=== PATIENT | female | born 1995 | race Two or more races ===

== ENCOUNTER → 2021-02-13 09:16 | Outpatient (BNVA) | payer OTHER, SELFPAY | PROVIDERS: PCP Internal Medicine; Visit Provider Advanced Practice Midwife | DX: N92.6 Irregular menstruation, unspecified (principal) | CPT/HCPCS: 81025; 99202 ==

== ENCOUNTER 2021-02-28 15:50 | Outpatient (REF) | payer OTHER, SELFPAY ==
--- NOTE | ~2021-02-28 | US_ITS ---
EXAMINATION: US OBSTETRICAL ULTRASOUND CLINICAL INFORMATION: Irregular menses. Check size and dates. COMPARISON: None. LMP: 01/05/2021. Gestational age by maternal dates is 7 weeks 5 days. Estimated date of delivery by maternal dates is 10/12/2021. TECHNIQUE: Transabdominal first trimester OB ultrasound. FINDINGS: There is a single intrauterine gestational sac with visible yolk sac, embryo/fetus, and cardiac activity. There is a second 0.4 x 0.3 x 0.3 cm simple cyst questionable for the amnion. There is no significant subchorionic hemorrhage or hematoma. HR: 140 beats per minute. CRL (crown-rump length): 1.13 cm (7 weeks 2 days +/- 4 days). JOSE CARLOS (estimated date of delivery): 10/15/2021 +/- 4 days. MATERNAL ADNEXA: The right maternal ovary measures 2.1 x 1.8 x 1.3 cm. The left maternal ovary is not seen. There is no significant maternal adnexal mass. No maternal pelvic ascites. US/US OB <= 14 weeks fetus IMPRESSION: 1. Single intrauterine gestation with ultrasound gestational age of 7 weeks 2 days +/- 4 days. 2. Estimated date of delivery is 10/15/2021 +/- 4 days. 3. No maternal adnexal mass or pelvic ascites.
== END 2021-02-28 15:51 | disposition home or self-care (01) ==
LOC: HO.US 15:50
PROVIDERS: PCP Internal Medicine; Visit Provider Advanced Practice Midwife
DX: N92.6 Irregular menstruation, unspecified (principal)
CPT/HCPCS: 76801

== ENCOUNTER → 2021-03-07 14:50 | Outpatient (BNVA) | payer OTHER, SELFPAY | PROVIDERS: PCP Internal Medicine; Visit Provider Advanced Practice Midwife ==

== ENCOUNTER → 2021-03-14 14:13 | Outpatient (BNVA) | payer OTHER, SELFPAY | PROVIDERS: Visit Provider Advanced Practice Midwife | DX: O99.321 Drug use complicating pregnancy, first trimester (principal); F12.90 Cannabis use, unspecified, uncomplicated; O21.9 Vomiting of pregnancy, unspecified; Z3A.09 9 weeks gestation of pregnancy | CPT/HCPCS: 99212 ==

== ENCOUNTER 2021-03-23 09:41 | Outpatient (REF) | payer OTHER, SELFPAY ==
[2021-03-23 11:03] LABS: Hematocrit 36.5 % (37-47); Hemoglobin 12.4 g/dl (12.0-16.0); Mean Corpuscular Hemoglobin 29.2 pg (27.0-33.0); Mean Corpuscular Volume 86.1 fL (80-98); Mean Platelet Volume 10.3 fL (9.4-12.3); Platelet Count 201 X10*3/uL (160-400); Red Blood Count 4.24 X10*6/uL (4.20-5.50); Red Cell Distribution Width 12.4 % (11.0-16.0); White Blood Count 8.6 X10*3/uL (4.8-10.8)
[2021-03-23 11:41] LABS: Amphetamine Screen Urine Not Detected (Not Detect); Barbiturates, Urine Not Detected (Not Detect); Benzodiazepines Screen Urine Not Detected (Not Detect); Cannabinoid Screen Urine POSITIVE (Not Detect); Cocaine Screen Urine Not Detected (Not Detect); Fentanyl, urine Not Detected (Not Detect); Opiate Screen Urine Not Detected (Not Detect); Phencyclidine Screen Urine Not Detected (Not Detect)
[2021-03-25 03:34] LABS: Syphilis Screen Nonreactive (Nonreactive)
[2021-03-25 04:03] LABS: HBsAGNum1 0.79 S/CO (0.00-0.99); HIV AB/AG Nonreactive (Nonreactive); HIV Num 1 0.06 S/CO (0.00-0.99); Hepatitis B Surface Antigen Negative (Negative); ~HepC Num1 0.04 S/CO (0.00-0.79); ~Hepatitis C Antibody Nonreactive (Nonreactive)
[2021-03-25 17:32] LABS: Rubella IgG Antibody 3.53 Index
== END 2021-03-23 09:42 | disposition home or self-care (01) ==
LOC: HO.LAB 09:41
PROVIDERS: PCP Internal Medicine; Visit Provider Advanced Practice Midwife
DX: Z32.01 Encounter for pregnancy test, result positive (principal)
CPT/HCPCS: 80307; 85027; 86762; 86780; 86787; 86803; 86850; 86900; 86901; 87086; 87340; 87389

== ENCOUNTER 2021-03-29 12:58 | Outpatient (REF) | payer OTHER, SELFPAY ==
--- NOTE | ~2021-03-29 | US_ITS ---
EXAMINATION: OBSTETRICAL ULTRASOUND, FIRST TRIMESTER HISTORY: A 25-year-old at 11.6 weeks of gestation NT screening COMPARISON: 02/28/2021 TECHNIQUE: Real time transabdominal imaging with color and M-mode Doppler. FINDINGS: A single, live IUP CRL of 52.4 mm c/w 12.0wks is noted. Heart Rate: 150 beats per minute. Normal yolk sac seen. NT was 1.14.mm. NB Present The embryo appears sonographically wnl for this GA. Both maternal ovaries are seen and appear normal. GESTATIONAL AGE: 1. Established GA: 11.6 wks 2. GA from [facility]: 12.0 wks ESTIMATED DATE OF DELIVERY: 1. Established JOSE CARLOS: 10/12/2021 2. JOSE CARLOS from [facility]: 10/11/2021 US/US OB 1T nuc measure IMPRESSION: 1. A single live IUP 2. Size equals dates 3. NT of 1.14 mm MFM Consultation: I reviewed the ultrasound findings along with significance of NT measurement. The NT of less than 3mm is generally reassuring. However, the sensitivity for T21 detection is only 60%. I reviewed the availability of serum aneuploidy screening which includes cell-free DNA and placental protein based tests. I discussed the sensitivity, false-positive rate, and other limitations associated with each test. I also reviewed the availability of invasive diagnostic tests that are associated small but definite risk of miscarriage. We also reviewed the differences between screening tests and diagnostic tests. After our discussion, she opted for the First trimester screening that is based on cell-free DNA or non-invasive testing (NIPT). The result will be faxed to your office in approximately 7 days. A follow up at 18 weeks for survey has been scheduled. Thank you very much for this referral. Total time 30 minutes. The time spent was devoted to counseling the patient about the disease and diagnosis, coordinating care including reviewing her records, pertinent lab data and studies, as well as discussing diagnostic evaluation and workup, plan therapeutic interventions and future disposition of care. This includes any additional research needed to obtain further information in formulating the plan of care of this patient. This note was generated with a voice recognition program. Please excuse any errors which may have been overlooked during my review of this note. Sometimes these errors may affect the content or meaning of a given sentence.
== END 2021-03-29 12:59 | disposition home or self-care (01) ==
LOC: HO.US 12:58
PROVIDERS: Visit Provider Advanced Practice Midwife
DX: Z32.01 Encounter for pregnancy test, result positive (principal); Z36.82 Encounter for antenatal screening for nuchal translucency
CPT/HCPCS: 76813

== ENCOUNTER 2021-04-30 08:50 | Outpatient (REF) | payer OTHER, SELFPAY ==
[2021-05-01 13:18] LABS: BV Int Neg Control Negative (Negative); BV Int Pos Control Positive (Positive)
[2021-05-01 13:57] LABS: CT PCR NOT DETECTED (Not Detect.); NG PCR NOT DETECTED (Not Detect.)
== END 2021-04-30 08:51 | disposition home or self-care (01) ==
LOC: HO.LAB 08:50
PROVIDERS: PCP Internal Medicine; Visit Provider Advanced Practice Midwife
DX: Z34.92 Encounter for supervision of normal pregnancy, unspecified, second trimester (principal); Z36.3 Encounter for antenatal screening for malformations; Z3A.16 16 weeks gestation of pregnancy
CPT/HCPCS: 87480; 87491; 87510; 87591; 87660; 99212

== ENCOUNTER 2021-05-17 10:16 | Outpatient (REF) | payer OTHER, SELFPAY ==
--- NOTE | ~2021-05-17 | US_ITS ---
EXAMINATION: US OBSTETRICAL CLINICAL INFORMATION: 26-year-old at 18.6 weeks of gestation Suspected anomaly COMPARISON: 03/29/2021 TECHNIQUE: Real-time transabdominal ultrasound was performed using C1-5 megahertz transducer. FINDINGS: A single, active, fetus is seen in vertex presentation. The placenta is anterior without previa, and the amniotic fluid volume is wnl. MEASUREMENTS: 1. Biparietal Diameter: 4.2 cm; 18.5 wks 2. Occipital Frontal Diameter: 5.3 cm 3. Head Circumference: 15.4 cm; 18.3 wks 4. Abdominal Circumference: 12.6 cm; 18.2 wks 5. Femur Length: 2.9 cm; 19.0 wks 6. Humerus Length: 2.7 cm; 18.6 wks 7. Tibia Length: 2.5 cm; 18.6 wks 8. Ulna Length: 2.6 cm; 19.2 wks 9. Lateral ventricle: 0.51 cm 10. Cerebellum: 1.9 cm; 19.3 wks 11. Cisterna Magna: 0.4 cm 12. Nuchal Fold: 2.6 mm 13. Heart Rate: 140 beats per minute Rt ovary: normal Lt ovary: normal Cervical length 3.5 cm on T/A. GESTATIONAL AGE: 1. Established GA: 18.6 wks 2. GA from [facility]: 18.5 wks ESTIMATED DATE OF DELIVERY: 1. Established JOSE CARLOS: 10/12/2021 2. JOSE CARLOS from [facility]: 10/13/2021 ANATOMY: The visualized anatomy includes but not limited to: 1. Cranium: Normal 2. Intracranial anatomy: cavum septum pellucidi, lateral ventricles, choroid plexus, cerebellum, posterior fossa, third and fourth ventricles. 3. face: orbits, lip/palate, profile, nasal bone 4. Heart: four-chamber view of the heart, ventricular septum, foramen ovale, pulmonary vein, left and right outflow tracts, three-vessel view, 3 vessel trachea view, aortic and ductal arches, situs.. 5. Diaphragm: Normal 6. Abdominal wall: Normal 7. Cord Insertion: Normal 8. Spine: Cervical, thoracic, lumbar, sacral. 9. Stomach: Normal size and shape 10. Right Kidney: Normal 11. Left Kidney: Normal 12. 3 vessel cord: Normal 13. Upper extremity: Open hands, fifth digit. 14. Lower extremity: Tibia, fibula, bilateral feet. 15. Bladder: Normal 16. Genitalia: Female, patient aware US/US OB /maternal detail IMPRESSION: 1. Single, living, intrauterine with appropriate biometry. 2. Normal survey DISCUSSION: I reviewed today's ultrasound findings. We discussed the limitations of ultrasound in diagnosing aneuploidy and other congenital abnormalities. I reviewed the differences between screening test and diagnostic test. Amniocentesis was discussed and declined. She was informed that the baseline incidence of congenital abnormalities is approximately 3-5%. Not all these conditions are diagnosable in utero. RECOMMENDATIONS: 1. Follow-up when necessary Thank you for allowing me to participate in her care. Total time 20 minutes. The time spent was devoted to counseling the patient about the disease and diagnosis, coordinating care including reviewing her records, pertinent lab data and studies, as well as discussing diagnostic evaluation and workup, plan therapeutic interventions and future disposition of care. This includes any additional research needed to obtain further information in formulating the plan of care of this patient. This note was generated with a voice recognition program. Please excuse any errors which may have been overlooked during my review of this note. Sometimes these errors may affect the content or meaning of a given sentence.
== END 2021-05-17 10:17 | disposition home or self-care (01) ==
LOC: HO.US 10:16
PROVIDERS: Visit Provider Advanced Practice Midwife
DX: Z34.92 Encounter for supervision of normal pregnancy, unspecified, second trimester (principal); Z36.3 Encounter for antenatal screening for malformations
CPT/HCPCS: 76811

== ENCOUNTER → 2021-07-01 08:32 | Outpatient (BNVA) | payer OTHER, SELFPAY | PROVIDERS: Visit Provider Obstetrics & Gynecology | DX: O99.322 Drug use complicating pregnancy, second trimester (principal); F12.90 Cannabis use, unspecified, uncomplicated; Z3A.25 25 weeks gestation of pregnancy | CPT/HCPCS: 99212 ==

== ENCOUNTER → 2021-07-18 08:21 | Outpatient (BNVA) | payer OTHER, SELFPAY | PROVIDERS: Visit Provider Obstetrics & Gynecology | DX: O99.322 Drug use complicating pregnancy, second trimester (principal); F12.90 Cannabis use, unspecified, uncomplicated; Z23 Encounter for immunization; Z3A.27 27 weeks gestation of pregnancy | CPT/HCPCS: 90471; 99212 ==

== ENCOUNTER 2021-08-05 09:19 | Outpatient (REF) | payer OTHER, SELFPAY ==
[2021-08-05 10:51] LABS: Hematocrit 32.5 % (37.0-47.0); Hemoglobin 10.9 g/dl (12.0-16.0); Mean Corpuscular HGB Conc 33.5 g/dl (31.0-35.0); Mean Corpuscular Hemoglobin 30.8 pg (27.0-33.0); Mean Corpuscular Volume 91.8 fL (80.0-98.0); Mean Platelet Volume 10.4 fL (9.4-12.3); Platelet Count 200 X10*3/uL (160-400); Red Blood Count 3.54 X10*6/uL (4.20-5.50); Red Cell Distribution Width 12.1 % (11.0-16.0); White Blood Count 11.3 X10*3/uL (4.8-10.8)
[2021-08-05 11:11] LABS: Glucose 1 Hour PP 50gm Dose 96 mg/dL (60-140)
[2021-08-05 12:00] LABS: Syphilis Screen Nonreactive (Nonreactive)
== END 2021-08-05 09:20 | disposition home or self-care (01) ==
LOC: HO.LAB 09:19
PROVIDERS: PCP Internal Medicine; Visit Provider Obstetrics & Gynecology
DX: Z34.92 Encounter for supervision of normal pregnancy, unspecified, second trimester (principal)
CPT/HCPCS: 82943; 85027; 86780

== ENCOUNTER → 2021-08-21 08:38 | Outpatient (BNVA) | payer OTHER, SELFPAY | PROVIDERS: PCP Internal Medicine; Visit Provider Advanced Practice Midwife | DX: O99.323 Drug use complicating pregnancy, third trimester (principal); F12.90 Cannabis use, unspecified, uncomplicated; O99.013 Anemia complicating pregnancy, third trimester; D64.9 Anemia, unspecified; Z3A.32 32 weeks gestation of pregnancy | CPT/HCPCS: 81003; 99212 ==

== ENCOUNTER → 2021-09-04 09:48 | Outpatient (BNVA) | payer OTHER, SELFPAY | PROVIDERS: PCP Internal Medicine; Visit Provider Advanced Practice Midwife | DX: O99.343 Other mental disorders complicating pregnancy, third trimester (principal); F43.10 Post-traumatic stress disorder, unspecified; Z86.59 Personal history of other mental and behavioral disorders; Z68.34 Body mass index [BMI] 34.0-34.9, adult | CPT/HCPCS: 99212 ==

== ENCOUNTER → 2021-09-11 14:04 | Outpatient (BNVA) | payer OTHER, SELFPAY | PROVIDERS: Visit Provider Advanced Practice Midwife | DX: O26.843 Uterine size-date discrepancy, third trimester (principal); Z86.59 Personal history of other mental and behavioral disorders; Z3A.35 35 weeks gestation of pregnancy | CPT/HCPCS: 99212 ==

== ENCOUNTER 2021-09-13 11:30 | Outpatient (REF) | payer OTHER, SELFPAY ==
--- NOTE | ~2021-09-13 | US_ITS ---
EXAMINATION: OBSTETRICAL ULTRASOUND, Follow up HISTORY: 26-year-old at 35.6 weeks of gestation Size date discrepancy COMPARISON: TECHNIQUE: Real time transabdominal imaging with color and M-mode Doppler. PRESENTATION: Vertex PLACENTA LOCATION: Anterior without previa AMNIOTIC FLUID: SARAY 12.8 MEASUREMENTS: 1. Biparietal Diameter: 8.8 cm; 35.3 wks 2. Head Circumference: 31.9 cm; 36.0 wks 3. Abdominal Circumference: 31.3 cm; 35.2 wks 4. Femur Length: 6.4 cm; 33.0 wks 5. Heart Rate: 1:30 beats per minute WEIGHT: EFW: 2490 grams (5 lbs 8 oz) -- 20 %. BIOPHYSICAL PROFILE: Motion: 2 Tone: 2 Breathin Amniotic Fluid: 2 Total score: 8/8 GESTATIONAL AGE: 1. Established GA: 35.6 wks 2. GA from [facility]: 35.0 wks ESTIMATED DATE OF DELIVERY: 1. Established JOSE CARLOS: 10/12/2021 2. JOSE CARLOS from [facility]: 10/18/2021 US/US OB follow up IMPRESSION: This is a pérez gestation. Thank you very much for this referral. Total time 20 minutes. The time spent was devoted to counseling the patient about the disease and diagnosis, coordinating care including reviewing her records, pertinent lab data and studies, as well as discussing diagnostic evaluation and workup, plan therapeutic interventions and future disposition of care. This includes any additional research needed to obtain further information in formulating the plan of care of this patient. This note was generated with a voice recognition program. Please excuse any errors which may have been overlooked during my review of this note. Sometimes these errors may affect the content or meaning of a given sentence.
== END 2021-09-13 11:31 | disposition home or self-care (01) ==
LOC: HO.US 11:30
PROVIDERS: PCP Internal Medicine; Visit Provider Advanced Practice Midwife
DX: O26.893 Other specified pregnancy related conditions, third trimester (principal); Z3A.35 35 weeks gestation of pregnancy; Z86.59 Personal history of other mental and behavioral disorders
CPT/HCPCS: 76816

== ENCOUNTER 2021-09-18 14:54 | Outpatient (REF) | payer OTHER, SELFPAY ==
[2021-09-19 05:24] LABS: CT PCR NOT DETECTED (Not Detect.); NG PCR NOT DETECTED (Not Detect.)
== END 2021-09-18 14:55 | disposition home or self-care (01) ==
LOC: HO.LAB 14:54
PROVIDERS: PCP Internal Medicine; Visit Provider Advanced Practice Midwife
DX: O99.013 Anemia complicating pregnancy, third trimester (principal); Z3A.36 36 weeks gestation of pregnancy
CPT/HCPCS: 87081; 87147; 87491; 87591; 99212

== ENCOUNTER → 2021-09-25 15:14 | Outpatient (BNVA) | payer OTHER, SELFPAY | PROVIDERS: Visit Provider Advanced Practice Midwife | DX: Z13.89 Encounter for screening for other disorder (principal) ==

== ENCOUNTER → 2021-09-26 08:19 | Outpatient (BNVA) | payer OTHER, SELFPAY | PROVIDERS: Visit Provider Obstetrics & Gynecology | DX: Z34.03 Encounter for supervision of normal first pregnancy, third trimester (principal); Z3A.37 37 weeks gestation of pregnancy | CPT/HCPCS: 99212 ==

== ENCOUNTER → 2021-10-03 11:32 | Outpatient (BNVA) | payer OTHER, SELFPAY | PROVIDERS: Visit Provider Obstetrics & Gynecology | DX: Z34.93 Encounter for supervision of normal pregnancy, unspecified, third trimester (principal); Z3A.38 38 weeks gestation of pregnancy | CPT/HCPCS: 99212 ==

== ENCOUNTER → 2021-10-09 14:55 | Outpatient (BNVA) | payer OTHER, SELFPAY | PROVIDERS: Visit Provider Advanced Practice Midwife | DX: Z34.03 Encounter for supervision of normal first pregnancy, third trimester (principal); Z3A.39 39 weeks gestation of pregnancy | CPT/HCPCS: 99212 ==

== ENCOUNTER 2023-02-06 14:22 | Outpatient (AMB) | payer MEDICAID, SELFPAY ==
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
[2023-02-06 14:29] VITALS: BP 110/72; BMI 24.9
== END 2023-02-09 07:21 | disposition home or self-care (01) ==
LOC: HO.HWS 14:22
PROVIDERS: Visit Provider Advanced Practice Midwife
DX: Z86.59 Personal history of other mental and behavioral disorders (principal); F32.A Depression, unspecified; F53.0 Postpartum depression; Z20.2 Contact with and (suspected) exposure to infections with a predominantly sexual mode of transmission; Z11.3 Encounter for screening for infections with a predominantly sexual mode of transmission; Z30.09 Encounter for other general counseling and advice on contraception; R45.7 State of emotional shock and stress, unspecified; Z86.19 Personal history of other infectious and parasitic diseases
CPT/HCPCS: 99214

== ENCOUNTER 2023-02-06 14:22 | Outpatient (REF) | payer SELFPAY ==
[2023-02-07 12:50] LABS: BV Int Neg Control Negative (Negative); BV Int Pos Control Positive (Positive)
== END 2023-02-06 14:23 | disposition home or self-care (01) ==
LOC: HO.LNP 14:22
PROVIDERS: Visit Provider Advanced Practice Midwife
DX: Z20.2 Contact with and (suspected) exposure to infections with a predominantly sexual mode of transmission (principal); Z86.19 Personal history of other infectious and parasitic diseases
CPT/HCPCS: 87480; 87510; 87660; 99212

== ENCOUNTER 2023-02-06 15:35 | Outpatient (REF) | payer MEDICAID, SELFPAY ==
[2023-02-07 04:06] LABS: Syphilis Screen Nonreactive (Nonreactive)
[2023-02-07 04:10] LABS: HBsAGNum1 0.31 S/CO (0.00-0.99); HIV AB/AG Nonreactive (Nonreactive); HIV Num 1 0.05 S/CO (0.00-0.99); Hepatitis B Surface Antigen Negative (Negative); ~HepC Num1 0.05 S/CO (0.00-0.79); ~Hepatitis C Antibody Nonreactive (Nonreactive)
[2023-02-07 04:26] LABS: CT PCR NOT DETECTED (Not Detect.); NG PCR NOT DETECTED (Not Detect.)
== END 2023-02-06 15:36 | disposition home or self-care (01) ==
LOC: HO.LAB 15:35
PROVIDERS: Visit Provider Advanced Practice Midwife
DX: Z11.3 Encounter for screening for infections with a predominantly sexual mode of transmission (principal); Z11.4 Encounter for screening for human immunodeficiency virus [HIV]; Z20.2 Contact with and (suspected) exposure to infections with a predominantly sexual mode of transmission
CPT/HCPCS: 0353U; 86780; 86803; 87340; 87389

== ENCOUNTER 2023-07-02 13:01 | Outpatient (AMB) | payer MEDICAID, SELFPAY ==
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
[2023-07-02 13:33] VITALS: BP 94/58; BMI 26.3
== END 2023-07-02 14:17 | disposition home or self-care (01) ==
LOC: HO.HWS 13:01
PROVIDERS: PCP Internal Medicine; Visit Provider Advanced Practice Midwife
DX: Z32.02 Encounter for pregnancy test, result negative (principal); Z20.2 Contact with and (suspected) exposure to infections with a predominantly sexual mode of transmission
CPT/HCPCS: 99213

== ENCOUNTER 2023-07-02 13:01 | Outpatient (REF) | payer MEDICAID, SELFPAY ==
[2023-07-03 15:23] LABS: BV Int Neg Control Negative (Negative); BV Int Pos Control Positive (Positive)
== END 2023-07-02 13:02 | disposition home or self-care (01) ==
LOC: HO.LNP 13:01
PROVIDERS: PCP Internal Medicine; Visit Provider Advanced Practice Midwife
DX: N89.8 Other specified noninflammatory disorders of vagina (principal); Z20.2 Contact with and (suspected) exposure to infections with a predominantly sexual mode of transmission; Z32.02 Encounter for pregnancy test, result negative
CPT/HCPCS: 0353U; 81025; 86704; 86780; 86803; 87389; 87480; 87510; 87660; 99212

== ENCOUNTER 2023-07-02 14:09 | Outpatient (REF) | payer MEDICAID, SELFPAY ==
[2023-07-02 17:06] LABS: CT PCR NOT DETECTED (Not Detect.); NG PCR NOT DETECTED (Not Detect.)
[2023-07-03 08:16] LABS: HBc Num1 0.04 S/CO (0.00-0.79); HIV AB/AG Nonreactive (Nonreactive); HIV Num 1 0.04 S/CO (0.00-0.99); Hepatitis B Core Antibody Nonreactive (Nonreactive); ~HepC Num1 0.06 S/CO (0.00-0.79); ~Hepatitis C Antibody Nonreactive (Nonreactive)
[2023-07-03 08:22] LABS: Syphilis Screen Nonreactive (Nonreactive)
== END 2023-07-02 14:10 | disposition home or self-care (01) ==
LOC: HO.LAB 14:09
PROVIDERS: PCP Internal Medicine; Visit Provider Advanced Practice Midwife
DX: N89.8 Other specified noninflammatory disorders of vagina (principal); Z20.2 Contact with and (suspected) exposure to infections with a predominantly sexual mode of transmission
CPT/HCPCS: 0353U; 86704; 86780; 86803; 87389

== ENCOUNTER 2023-12-08 09:21 | Outpatient (AMB) | payer MEDICAID, SELFPAY ==
[2023-12-08 09:22] VITALS: BP 96/62; BMI 26.3
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
== END 2023-12-08 09:53 | disposition home or self-care (01) ==
LOC: HO.HWSM 09:21
PROVIDERS: PCP Internal Medicine; Visit Provider Advanced Practice Midwife
DX: Z11.3 Encounter for screening for infections with a predominantly sexual mode of transmission (principal); N89.8 Other specified noninflammatory disorders of vagina; Z12.4 Encounter for screening for malignant neoplasm of cervix
CPT/HCPCS: 99213

== ENCOUNTER 2023-12-08 09:21 | Outpatient (REF) | payer MEDICAID, SELFPAY | END 2023-12-08 09:22 | disposition home or self-care (01) | LOC: HO.LAB 09:21 | PROVIDERS: PCP Internal Medicine; Visit Provider Advanced Practice Midwife | DX: Z12.4 Encounter for screening for malignant neoplasm of cervix (principal); N89.8 Other specified noninflammatory disorders of vagina; Z11.3 Encounter for screening for infections with a predominantly sexual mode of transmission | CPT/HCPCS: 88142; 99212 ==

== ENCOUNTER 2023-12-08 10:11 | Outpatient (REF) | payer MEDICAID, SELFPAY ==
[2023-12-08 14:03] LABS: CT PCR NOT DETECTED (Not Detect.); NG PCR NOT DETECTED (Not Detect.)
[2023-12-09 03:24] LABS: Syphilis Screen Nonreactive (Nonreactive)
[2023-12-09 03:55] LABS: HBsAGNum1 0.24 S/CO (0.00-0.99); HIV AB/AG Nonreactive (Nonreactive); HIV Num 1 0.05 S/CO (0.00-0.99); Hepatitis B Surface Antigen Negative (Negative); ~HepC Num1 0.08 S/CO (0.00-0.79); ~Hepatitis C Antibody Nonreactive (Nonreactive)
[2023-12-09 10:55] LABS: Bacterial Vaginosis PCR POSITIVE (Negative); Candida Group PCR NOT DETECTED (Not Detect); Candida glab krusei PCR NOT DETECTED (Not Detect); Trichomonas vaginalis PCR NOT DETECTED (Not Detect)
== END 2023-12-08 10:12 | disposition home or self-care (01) ==
LOC: HO.HHCL 10:11
PROVIDERS: Visit Provider Advanced Practice Midwife
DX: Z11.3 Encounter for screening for infections with a predominantly sexual mode of transmission (principal); Z11.4 Encounter for screening for human immunodeficiency virus [HIV]; N89.8 Other specified noninflammatory disorders of vagina
CPT/HCPCS: 0352U; 0353U; 86780; 86803; 87340; 87389; 88142; 99212

== ENCOUNTER 2023-12-21 13:06 | Outpatient (AMB) | payer MEDICAID, SELFPAY ==
[2023-12-21 13:15] VITALS: BP 110/62; BMI 26.3
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
== END 2023-12-21 13:46 | disposition home or self-care (01) ==
LOC: HO.HWSM 13:06
PROVIDERS: PCP Internal Medicine; Visit Provider Advanced Practice Midwife
DX: Z01.419 Encounter for gynecological examination (general) (routine) without abnormal findings (principal); N89.8 Other specified noninflammatory disorders of vagina; Z30.09 Encounter for other general counseling and advice on contraception; Z30.011 Encounter for initial prescription of contraceptive pills
CPT/HCPCS: 99395

== ENCOUNTER → 2023-12-21 13:06 | Outpatient (BNVA) | payer MEDICAID, SELFPAY | PROVIDERS: PCP Internal Medicine; Visit Provider Advanced Practice Midwife | DX: Z12.4 Encounter for screening for malignant neoplasm of cervix (principal); N89.8 Other specified noninflammatory disorders of vagina; Z30.09 Encounter for other general counseling and advice on contraception; Z30.011 Encounter for initial prescription of contraceptive pills | CPT/HCPCS: 99395 ==

== ENCOUNTER 2025-04-20 10:33 | Outpatient (AMB) | payer MEDICAID, SELFPAY ==
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
[2025-04-20 10:37] VITALS: BP 100/68; BMI 21.6
== END 2025-04-20 11:23 | disposition home or self-care (01) ==
LOC: HO.HWS 10:33
PROVIDERS: PCP Internal Medicine; Visit Provider Advanced Practice Midwife
DX: Z12.4 Encounter for screening for malignant neoplasm of cervix (principal); Z01.419 Encounter for gynecological examination (general) (routine) without abnormal findings; G43.909 Migraine, unspecified, not intractable, without status migrainosus; N94.3 Premenstrual tension syndrome; N94.6 Dysmenorrhea, unspecified
CPT/HCPCS: 99212; 99395; 99459

== ENCOUNTER 2025-04-20 10:33 | Outpatient (REF) | payer MEDICAID, SELFPAY ==
[2025-04-20 13:07] LABS: Syphilis Screen Nonreactive (Nonreactive)
[2025-04-20 13:10] LABS: HBc Num1 0.03 S/CO (0.00-0.79); HIV Num 1 0.05 S/CO (0.00-0.99); ~HepC Num1 0.05 S/CO (0.00-0.79); ~Hepatitis C Antibody Nonreactive (Nonreactive)
[2025-04-20 16:19] LABS: Bacterial Vaginosis PCR POSITIVE (Negative); Candida Group PCR NOT DETECTED (Not Detect); Candida glab krusei PCR NOT DETECTED (Not Detect); Trichomonas vaginalis PCR NOT DETECTED (Not Detect)
[2025-04-20 16:51] LABS: CT PCR NOT DETECTED (Not Detect.); NG PCR NOT DETECTED (Not Detect.)
== END 2025-04-20 10:34 | disposition home or self-care (01) ==
LOC: HO.LAB 10:33
PROVIDERS: PCP Internal Medicine; Visit Provider Advanced Practice Midwife
DX: Z01.411 Encounter for gynecological examination (general) (routine) with abnormal findings (principal); Z11.59 Encounter for screening for other viral diseases; Z11.3 Encounter for screening for infections with a predominantly sexual mode of transmission; G43.909 Migraine, unspecified, not intractable, without status migrainosus; N94.6 Dysmenorrhea, unspecified; N89.8 Other specified noninflammatory disorders of vagina; Z20.2 Contact with and (suspected) exposure to infections with a predominantly sexual mode of transmission
CPT/HCPCS: 36415; 81515; 86704; 86780; 86803; 87389; 87491; 87591; 87626; 88175; 99212; 99395; 99459

== ENCOUNTER 2025-04-20 11:15 | Outpatient (REF) | payer MEDICAID, SELFPAY | END 2025-04-20 11:16 | disposition home or self-care (01) | LOC: HO.LNP 11:15 | PROVIDERS: Visit Provider Advanced Practice Midwife | DX: Z13.89 Encounter for screening for other disorder (principal) | CPT/HCPCS: 87626; 88175 ==

== ENCOUNTER 2025-06-08 00:31 | Emergency (ER) | payer MEDICAID, SELFPAY ==
[2025-06-08 00:35] VITALS: BP 140/90; BP 96/49; PULSE 60; PULSE 67; RESP 20; TEMP 36.4; O2SAT 100; BMI 21.0
== END 2025-06-08 01:16 | disposition left against medical advice (07) ==
PROVIDERS: Emergency Provider Emergency Medicine
DX: M79.673 Pain in unspecified foot (principal); Z53.21 Procedure and treatment not carried out due to patient leaving prior to being seen by health care provider
CPT/HCPCS: 99281